=== PATIENT | male | born 1970 | race Two or more races ===

== ENCOUNTER 2016-07-08 16:06 | Emergency (ER) | payer OTHER ==
[~2016-07-08] VITALS: Ht 167.6 cm; Wt 91.7 kg
[2016-07-08 16:20] VITALS: BP 163/90
[2016-07-08 17:29] LABS: BLOOD UREA NITROGEN 18 mg/dL (7-18)
[2016-07-08 17:33] LABS: IS PT STATUS REG ER OR PRE ER? YES
== END 2016-07-08 18:58 | disposition home or self-care (01) ==
LOC: ED 18:52
DX: F41.1 Generalized anxiety disorder (principal); R06.4 Hyperventilation; I10 Essential (primary) hypertension
CPT/HCPCS: 36415; 71010; 80048; 82040; 84484; 85025; 93005; 99285